=== PATIENT | male | born 1995 | race Caucasian/White ===

== ENCOUNTER 2017-01-03 18:51 | Emergency (ER) | payer SELFPAY ==
[~2017-01-03] VITALS: Ht 175.3 cm; Wt 72.6 kg
[2017-01-03 19:00] VITALS: BP 141/78
--- NOTE | 2017-01-03 19:42 | PHYS DOC ---
Past Medical History Past Medical History: No Pertinent History Past Surgical History: No Surgical History Alcohol Use: None Drug Use: None Adult General Chief Complaint Chief Complaint: LACERATION/AVULSION [facility] HPI Patient is a 21 year old male presents emergency room with a complaint of a laceration to his left knee. Patient states he was skateboarding and fell and struck his knee on asphalt surface.. He denies hitting his head or loss of consciousness. Patient's had numerous lacerations to the same area in the past. Patient states that his last tetanus shot was in July of this past year. He denies any additional injuries or concerns at this time. Review of Systems Review of Systems Constitutional: Denies fever or chills [] Eyes: Denies change in visual acuity, redness, or eye pain [] HENT: Denies nasal congestion or sore throat [] Respiratory: Denies cough or shortness of breath [] Cardiovascular: No additional information not addressed in HPI [] GI: Denies abdominal pain, nausea, vomiting, bloody stools or diarrhea [] : Denies dysuria or hematuria [] Musculoskeletal: Denies back pain or joint pain [] Integument: Denies rash or skin lesions [] Neurologic: Denies headache, focal weakness or sensory changes [] Endocrine: Denies polyuria or polydipsia [] Current Medications Current Medications Current Medications Medications (Trade) Dose Ordered Sig/[place] Start Time Stop Time Status Last Admin Dose Admin Lidocaine/ Epinephrine (Xylocaine 1%-Epi 1:100,000) 20 ml 1X ONCE 01/03/17 19:45 01/03/17 19:46 DC 01/03/17 19:59 20 ML Allergies Allergies Allergies Uncoded Allergies Type Severity Reaction Last Updated Verified METAL Allergy Mild RASH 01/03/17 Physical Exam Physical Exam Constitutional: Well developed, well nourished, no acute distress, non-toxic appearance. [] HENT: Normocephalic, atraumatic, bilateral external ears normal, oropharynx moist, no oral exudates, nose normal. [] Eyes: PERRLA, EOMI, conjunctiva normal, no discharge. [] Neck: Normal range of motion, no tenderness, supple, no stridor. [] Cardiovascular:Heart rate regular rhythm, no murmur [] Lungs & Thorax: Bilateral breath sounds clear to auscultation [] Abdomen: Bowel sounds normal, soft, no tenderness, no masses, no pulsatile masses. [] Skin: Warm, dry, no erythema, no rash. [] Back: No tenderness, no CVA tenderness. [] Extremities: Left knee with a large abrasion and a laceration is approximately 3 cm in length overlying the patellar tendon region. Extensor mechanism is intact. There is no high riding patella. The laceration itself extends into the dermis. The basement of the lacerations easily seen. There are no evidence of retained foreign bodies. Patient's jeans were not ripped. Neurologic: Alert and oriented X 3, normal motor function, normal sensory function, no focal deficits noted. [] Psychologic: Affect normal, judgement normal, mood normal. [] Current Patient Data Vital Signs Vital Signs Date Time Temp Pulse Resp B/P Pulse Ox O2 Delivery O2 Flow Rate FiO2 01/03/17 19:00 97.7 82 20 141/78 100 Room Air 97.7 EKG EKG [] Radiology/Procedures Radiology/Procedures Procedure note: 3 cm laceration to the anterior left knee was anesthetized with 1% lidocaine with epinephrine. Wound was cleansed with Betadine solution and rinsed with copious amounts of saline. Wound was explored for foreign bodies. No foreign bodies are found. Wound margins were approximated utilizing 3-0 nylon in a simple interrupted fashion of a singular closure for total of 6 stitches. Patient tolerated the procedure well. [] Course & Med Decision Making Course & Med Decision Making Pertinent Labs and Imaging studies reviewed. (See chart for details) [] Dragon Disclaimer Dragon Disclaimer This electronic medical record was generated, in whole or in part, using a voice recognition dictation system. Departure Departure Impression: Primary Impression: Laceration of left knee Disposition: HOME, SELF-CARE Condition: IMPROVED Referrals: NO PCP (PCP) Patient Instructions: Laceration Care, Adult, [id number] Additional Instructions: 1. Sutures to be removed in 10 days. 2. Review the discharge instructions provided for self-care and reasons to return the emergency department. 3. Change the dressing daily. Apply a coat of antibiotic ointment twice a day. 4. You need to follow-up with a primary care doctor for wound evaluation and stitch removal. If he cannot find one, then you can return to the emergency room for wound evaluation and stitch removal. JG HERNANDEZ Jan 03, 2017 19:42
[2017-01-03] MEDS ORDERED: LIDOCAINE 1%/EPI 1:100,000 20 ML VIAL. IJ ONE (19:45)
== END 2017-01-03 20:22 | disposition home or self-care (01) ==
LOC: ER 18:51
DX: S81.012A Laceration without foreign body, left knee, initial encounter (principal); Z91.048 Other nonmedicinal substance allergy status; W01.198A Fall on same level from slipping, tripping and stumbling with subsequent striking against other object, initial encounter; Y93.51 Activity, roller skating (inline) and skateboarding; Y92.89 Other specified places as the place of occurrence of the external cause; Y99.8 Other external cause status
CPT/HCPCS: 12002; 99284; J3490